=== PATIENT | male | born 1955 | race Caucasian/White ===

== ENCOUNTER 2019-04-06 13:38 | Inpatient (IN) ==
[2019-04-06] MEDS ORDERED: Sodium Chloride 0.9% 1,000 ML PRIMARY IV ONE (13:51)
[2019-04-06 14:01] LABS: Hematocrit [HCT] 24.9 % (42.0-52.0); Hemoglobin [HGB] 8.6 g/dL (14.0-18.0); RED BLOOD COUNT 2.05 10^6/uL (4.70-6.10)
[2019-04-06 14:02] LABS: MEAN CORPUSCULAR HGB CONC 34.5 g/dL (33-37); MEAN CORPUSCULAR VOLUME 121.5 FL (80-90); MEAN PLATELET VOLUME 8.6 FL (7.4-12.2)
[2019-04-06 14:05] LABS: VENOUS PH 7.39 (7.32-7.42)
[2019-04-06 14:16] LABS: PLATELET MORPHOLOGY COMMENT NORMAL MORPHOLOGY (NORM); RBC MORPHOLOGY COMMENT SEE COMMENTS (NORM); WBC MORPHOLOGY COMMENT NORMAL MORPHOLOGY (NORM)
[2019-04-06 14:17] LABS: BAND NEUTROPHILS % 0 % (0-10); BASOPHILS % (MANUAL) 2 % (0-1); BLOOD UREA NITROGEN 10 mg/dL (7-22); BUN/CREATININE RATIO 14.28 (6-20); EOSINOPHILS % (MANUAL) 6 % (0-8); MONOCYTES % (MANUAL) 9 % (0-12); NEUTROPHILS % (MANUAL) 72 % (50-80); SERUM ALBUMIN 3.8 g/dL (3.5-4.8)
[2019-04-06 15:23] LABS: BILIRUBIN,URINE LARGE (NEG); CLARITY,URINE CLEAR (CLEAR); GLUCOSE, URINE (UA) NEGATIVE (NEG); PROTEIN,URINE NEGATIVE (NEG)
[2019-04-06 15:30] LABS: COLOR,URINE ORANGE (Y); OCCULT BLOOD,URINE TRACE (NEG)
[2019-04-06 15:31] LABS: BACTERIA,URINE MODERATE; URINE SAMPLE TYPE CLEAN CATCH URINE; URINE SPECIFIC GRAVITY - MAN 1.025
[2019-04-06 15:34] LABS: AMPHETAMINE SCREEN NEGATIVE (NEG); CANNABINOID SCREEN,URINE NEGATIVE (NEG); COCAINE SCREEN NEGATIVE (NEG); METHADONE URINE SCREEN NEGATIVE (NEG); METHAMPHETAMINES SCREEN,URINE NEGATIVE (NEG); OPIATE SCREEN,URINE NEGATIVE (NEG)
[2019-04-06] MEDS ORDERED: LIDOCAINE W/ SODIUM BICARB 0.5 ML SYR SUBD PRN (18:48)
[2019-04-06] MEDS ORDERED: Ertapenem Inj 1 GM in Sodium Chloride 0.9% 100 ML IV SCH (18:48)
[2019-04-06] MEDS ORDERED: Magnesium Sulfate 2gm (Premix) 2 GM/50 ML BAG IV ONE (18:48)
[2019-04-06] MEDS: HEPARIN 5000 UNIT/1 ML SUBCUT SCH (19:24)
[2019-04-06] MEDS ORDERED: PANTOPRAZOLE IV 40 MG VIAL IVP SCH (21:00)
[2019-04-06] MEDS ORDERED: AMITRIPTYLINE 25 MG TABLET PO SCH (21:00)
[2019-04-07] MEDS: HEPARIN 5000 UNIT/1 ML SUBCUT SCH (03:41)
[2019-04-07 04:41] LABS: BLOOD UREA NITROGEN 9 mg/dL (7-22)
[2019-04-07 07:57] LABS: BASOPHILS # (AUTO) 0.08 10*3/UL; BASOPHILS % (AUTO) 1.3 % (0-1); EOSINOPHILS # (AUTO) 0.32 10*3/UL; EOSINOPHILS % (AUTO) 5.3 % (0-8); Hemoglobin [HGB] 7.1 g/dL (14.0-18.0); LYMPHOCYTES # (AUTO) 1.64 10*3/uL; MEAN CORPUSCULAR HGB CONC 35.9 g/dL (33-37); MEAN CORPUSCULAR VOLUME 121.5 FL (80-90); MEAN PLATELET VOLUME 8.7 FL (7.4-12.2); MONOCYTES # (AUTO) 0.39 10*3/UL (0.3-0.8); MONOCYTES % (AUTO) 6.4 % (5-15); NEUTROPHILS # (AUTO) 3.59 10*3/UL; NEUTROPHILS % (AUTO) 59.4 % (50-80); RED BLOOD COUNT 1.63 10^6/uL (4.70-6.10)
[2019-04-07 08:02] VITALS: BP 101/44; RESP 20; TEMP 99.1; O2SAT 94
[2019-04-07 08:06] LABS: BLOOD UREA NITROGEN 9 mg/dL (7-22); BUN/CREATININE RATIO 12.85 (6-20); SERUM ALBUMIN 2.9 g/dL (3.5-4.8)
[2019-04-07 08:11] LABS: Hematocrit [HCT] 19.8 % (42.0-52.0)
[2019-04-07 08:25] LABS: PLATELET MORPHOLOGY COMMENT NORMAL MORPHOLOGY (NORM); WBC MORPHOLOGY COMMENT NORMAL MORPHOLOGY (NORM)
[2019-04-07 08:27] LABS: RBC MORPHOLOGY COMMENT SEE COMMENTS (NORM)
== END 2019-04-07 10:01 | disposition short-term general hospital (02) | DRG 445 ==
LOC: ER 13:38 → MED/SURG 18:22
PROVIDERS: ADMIT Internal Medicine; ATTEND Internal Medicine